=== PATIENT | female | born 1985 ===

== ENCOUNTER 2023-07-26 09:10 | Inpatient (IN) | payer OTHER ==
[2023-07-26] MEDS ORDERED: ELECTROLYTE-148 SOLN 1,000 ML IV SCH (09:45)
[2023-07-26 09:51] VITALS: BMI 36.7
[2023-07-26 10:11] LABS: INR 0.94 (0.83-1.09); PROTHROMBIN TIME (PATIENT) 10.9 SEC (9.7-13.0)
[2023-07-26 10:16] LABS: BASO % 0.5 % (0-2.0); HEMATOCRIT 37.6 % (32.4-45.2); HEMOGLOBIN 12.3 GM/dL (10.7-15.3); LYMPH % 40.4 % (8-40); MCH 28.3 pg (25.7-33.7); MCHC 32.7 g/dl (32.0-36.0); MEAN CELL VOLUME 86.6 fl (80-96); MONO % 7.7 % (3.8-10.2); NEUT % 50.4 % (42.8-82.8); PLATELET COUNT 173 10^3/uL (134-434); RBC 4.34 M/mm3 (3.60-5.2); RDW 15.3 % (11.6-15.6); WHITE BLOOD COUNT 4.8 K/mm3 (4.0-10.0)
[2023-07-26 10:29] LABS: POTASSIUM 4.2 mmol/L (3.5-5.1)
[2023-07-26 10:34] LABS: CALCIUM 8.8 mg/dL (8.5-10.1)
[2023-07-26 10:35] LABS: BLOOD UREA NITROGEN 8.1 mg/dL (7-18)
[2023-07-26 10:38] LABS: CREATININE 0.6 mg/dL (0.55-1.3)
[2023-07-26] MEDS ORDERED: OXYTOCIN 30 UNITS in 0.9% NS 30 UNIT/500 ML INFUS.BAG IVPB ONE (11:46)
[2023-07-26] MEDS ORDERED: OXYTOCIN 30 UNITS in 0.9% NS 30 UNIT/500 ML INFUS.BAG IVPB SCH (12:45)
[2023-07-26 13:37] LABS: HIV INTERPRETATION NEGATIVE (NEGATIVE)
[2023-07-26] MEDS ORDERED: PROMETHAZINE HCL 25 MG/1 ML VIAL IVPB ONE (13:40)
[2023-07-26] MEDS ORDERED: BUTORPHANOL TARTRATE 2 MG/ML VIAL IVPB ONE (13:40)
[2023-07-26] MEDS ORDERED: FENTANYL/BUPIVACAINE/NS/PF - PCEA - 50 ML DISP.SYRIN EP ONE (14:02)
[2023-07-26] MEDS ORDERED: NALOXONE HCL 0.4 MG/ML VIAL IVPUSH PRN (14:11)
[2023-07-26] MEDS ORDERED: LIDO 2%/EPI 1:200000 PRESRVFRE (20 ML SDVIAL) ONE (14:14)
[2023-07-26] MEDS ORDERED: BUPIVACAINE HCL/PF 0.25% (2.5MG/ML) 10 ML VIAL ONE (14:14)
[2023-07-26] MEDS ORDERED: FENTANYL/BUPIVACAINE/NS/PF - PCEA - 50 ML DISP.SYRIN EP SCH (14:15)
[2023-07-26] MEDS ORDERED: OXYTOCIN 20 UNITS in 0.9% NS 20 UNIT/1,000 ML INFUS.BAG IV ONE (15:10)
[2023-07-26] MEDS ORDERED: BENZOCAINE 20% 57 GM BOTTLE TP PRN (15:57)
[2023-07-26] MEDS ORDERED: METHYLERGONOVINE MALEATE 0.2 MG/1 ML AMP IM PRN (15:57)
[2023-07-26] MEDS ORDERED: BISACODYL 10 MG SUPP.RECT RC PRN (15:57)
[2023-07-26] MEDS ORDERED: WITCH HAZEL 50% (TUCKS) 40 PAD/JAR PAD TP PRN (15:57)
[2023-07-26] MEDS ORDERED: BENZOCAINE 28 GM HEMORRHOIDAL OINTMENT TP PRN (15:57)
[2023-07-26] MEDS ORDERED: OXYTOCIN 20 UNITS in 0.9% NS 20 UNIT/1,000 ML INFUS.BAG IV SCH (16:00)
[2023-07-26] MEDS: ACETAMINOPHEN 325 MG TABLET (FP) PO PRN (20:07)
[2023-07-27] MEDS: ACETAMINOPHEN 325 MG TABLET (FP) PO PRN ×2 (01:00→04:47)
[2023-07-27] MEDS: oxyCODONE HCL 5 MG TABLET PO PRN ×3 (06:26→21:23)
[2023-07-27 08:17] LABS: BASO % 0.8 % (0-2.0); EOS % 0.8 % (0-4.5); HEMATOCRIT 39.2 % (32.4-45.2); HEMOGLOBIN 12.7 GM/dL (10.7-15.3); LYMPH % 22.7 % (8-40); MCH 28.2 pg (25.7-33.7); MCHC 32.4 g/dl (32.0-36.0); MEAN CELL VOLUME 86.9 fl (80-96); MEAN PLT VOLUME 9.3 fl (7.5-11.1); MONO % 10.5 % (3.8-10.2); NEUT % 65.2 % (42.8-82.8); PLATELET COUNT 140 10^3/uL (134-434); RBC 4.51 M/mm3 (3.60-5.2); RDW 15.5 % (11.6-15.6); WHITE BLOOD COUNT 10.5 K/mm3 (4.0-10.0)
[2023-07-27] MEDS: PRENATAL VITAMINS W/ FOLIC ACID TABLET (FP) PO SCH (09:47)
[2023-07-27] MEDS: FERROUS SO4 325 MG TABLET (FP) PO SCH (09:48)
[2023-07-27] MEDS: IBUPROFEN 600 MG TABLET (FP) PO PRN (09:49)
[2023-07-27 13:29] VITALS: RESP 18
[2023-07-27] MEDS ORDERED: SENNOSIDES/DOCUSATE COMBO (SENNA PLUS) TABLET (UD) PO PRN (22:00)
[2023-07-28] MEDS: oxyCODONE HCL 5 MG TABLET PO PRN ×2 (02:43→11:38)
[2023-07-28] MEDS: IBUPROFEN 600 MG TABLET (FP) PO PRN (07:59)
[2023-07-28 08:08] VITALS: BP 135/90; PULSE 81; TEMP 97.6
[2023-07-28] MEDS: FERROUS SO4 325 MG TABLET (FP) PO SCH (09:25)
[2023-07-28] MEDS: PRENATAL VITAMINS W/ FOLIC ACID TABLET (FP) PO SCH (09:25)
[2023-07-28] MEDS: ACETAMINOPHEN 325 MG TABLET (FP) PO PRN (09:26)
== END 2023-07-28 18:06 | disposition home or self-care (01) | DRG 807 ==
LOC: JLDR 09:10 → J3W 18:05
PROVIDERS: ADMIT Obstetrics & Gynecology; ATTEND Obstetrics & Gynecology
PROC: 10E0XZZ Delivery of Products of Conception, External Approach (ICD-10-PCS; principal; 2023-07-26)
DX: O48.0 Post-term pregnancy (principal); Z3A.40 40 weeks gestation of pregnancy; Z37.0 Single live birth
CPT/HCPCS: 36415; 80048; 85025; 85610; 85730; 86780; 86850; 86900; 86901; 87389